=== PATIENT | female | born 1990 | race Caucasian/White ===

== ENCOUNTER 2016-12-05 16:05 | Emergency (ER) | payer OTHER ==
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
[~2016-12-05 16:05] MED LIST: ALBUTEROL17 GM INH; ANXIETY MED; LEVAQUIN PO; LEXAPRO PO; NAPROSYN500 MG PO; NO MEDICATIONS; PEN-VEE K PO; PRENATAL VITAMI1 TA3 PO; ROBAXIN500 MG PO; TYLENOL #3 PO; VISTARIL PO; ZOFRANODT PO; [UNRECOGNIZED DRUG - OTHER] OP
== END 2016-12-05 19:30 | disposition hospice, home (50) ==
LOC: SED 16:05
DX: S12.190A Other displaced fracture of second cervical vertebra, initial encounter for closed fracture (principal); F17.210 Nicotine dependence, cigarettes, uncomplicated; V43.62XA Car passenger injured in collision with other type car in traffic accident, initial encounter
CPT/HCPCS: 72040; 72125; 99285